=== PATIENT | female | born 1945 | race Caucasian/White ===

== ENCOUNTER 2017-10-07 18:18 | Emergency (ER) | payer OTHER ==
[2017-10-07 18:24] VITALS: TEMP 37.2
[2017-10-07 19:13] LABS: BASO % 0.6 %; BASO ABS # 0.03 K/uL (0-0.2); EOS % 2.3 %; EOS ABS # 0.12 K/uL (0-0.5); HEMATOCRIT 33.8 % (37-47); HEMOGLOBIN 10.6 g/dL (12.0-16.0); IG# 0.01 K/uL (0.00-0.02); LYMPH % 20.9 %; LYMPH ABS # 1.11 K/uL (1.2-3.4); MEAN CELL VOLUME 92.1 fL (80-100); MEAN CORPUSCULAR HEMOGLOBIN 28.9 pg (25-34); MEAN CORPUSCULAR HGB CONC 31.4 g/dl (32-36); MEAN PLATELET VOLUME 9.2 fL (7.4-10.4); MONO % 8.7 %; MONO ABS # 0.46 K/uL (0.11-0.59); NEUT % 67.3 %; NEUT ABS # 3.57 K/uL (1.4-6.5); PLATELET COUNT 271 K/uL (130-400); RED CELL DISTRIBUTION WIDTH CV 13.6 % (11.5-14.5); RED CELL DISTRIBUTION WIDTH SD 45.9 fL (36.4-46.3)
[2017-10-07 19:30] LABS: BLOOD UREA NITROGEN 27 mg/dl (7-18); CALCIUM 8.9 mg/dl (8.5-10.1); CARBON DIOXIDE 30 mmol/L (21-32); CREATININE 0.96 mg/dl (0.60-1.20); GLUCOSE 83 mg/dl (70-99); POTASSIUM 3.5 mmol/L (3.5-5.1); SODIUM 142 mmol/L (136-145)
--- NOTE | 2017-10-07 19:32 | DIAGNOSTIC IMAGING REPORT ---
PELVIS 1 OR 2 VIEW ROUTINE CLINICAL HISTORY: Pelvic pain COMPARISON STUDY: None FINDINGS: The bones are osteopenic. There are postsurgical and advanced degenerative changes within the lower lumbar spine. There is a right ischio pubic ring fracture. No femoral fractures are visualized on conventional radiographic imaging. IMPRESSION: Right ischio pubic ring fracture. Electronically signed by: Francisco Bush M.D. 10/07/2017 7:31 PM Dictated Date/Time: 10/07/2017 7:30 PM
[2017-10-07] MEDS ORDERED: GABA-112 PO (20:03)
[2017-10-07] MEDS ORDERED: NMN10 PO (20:04)
[2017-10-07] MEDS ORDERED: LACTCAP3 PO (20:07)
[2017-10-07] MEDS ORDERED: AMLO5TAB3 PO (20:09)
[2017-10-07] MEDS ORDERED: B-CO1TAB29 PO (20:15)
[2017-10-07] MEDS ORDERED: CLR10 PO (20:16)
[2017-10-07] MEDS ORDERED: PANT40TA PO (20:17)
[2017-10-07] MEDS ORDERED: SERT-234 PO (20:18)
[2017-10-07] MEDS ORDERED: TRIATAB3 PO (20:19)
[2017-10-07] MEDS ORDERED: BUPR-83 PO (20:21)
[2017-10-07] MEDS ORDERED: ASPI81TA28 PO (20:22)
[2017-10-07] MEDS ORDERED: CALC-323 PO (20:23)
[2017-10-07] MEDS ORDERED: GLUC15009 PO (20:25)
[2017-10-07] MEDS ORDERED: METO50TA8 PO (20:26)
[2017-10-07] MEDS ORDERED: MULT-1027 PO (20:28)
[2017-10-07] MEDS ORDERED: RISP1TAB68 PO (20:29)
[2017-10-07] MEDS ORDERED: RANI300T2 PO (20:30)
[2017-10-07] MEDS ORDERED: ATV/1 PO (20:30)
[2017-10-07] MEDS ORDERED: RIVA1DIS TD (20:33)
[2017-10-07] MEDS ORDERED: FLUT0.15 NAE (20:34)
[2017-10-07] MEDS ORDERED: FERR1TAB23 PO (20:37)
[2017-10-07] MEDS ORDERED: ASCO500T16 PO (20:38)
[2017-10-07] MEDS ORDERED: SENN-61 PO (20:39)
[2017-10-07 21:36] VITALS: BP 133/71; PULSE 76; O2SAT 98
--- NOTE | 2017-10-07 23:42 | EMERGENCY ROOM VISIT NOTE ---
History Report prepared by Daya: Joe Prater Under the Supervision of: Dr. Zaheer Morales M.D. First contact with patient: 18:28 Chief Complaint: PELVIC PAIN Stated Complaint: FRACTURED PELVIS History of Present Illness The patient is a 72 year old female who presents to the Emergency Room with complaints of constant, right, groin pain beginning 8 days ago. The patient's son states she fell mowing grass a month ago. He reports she was fine for two weeks and then started having pain. The son notes she was evaluated by her PCP and had a back and pelvis x-ray that was negative for an acute fracture. He states she also had a normal pelvic exam. The son reports she had laser treatment last Monday for pain, and she could barely walk into the office for treatment. He notes she was taken to [facility] and told she had a fractured pelvis. The son states her fracture was visible per a pelvic x-ray. He notes she was discharged with hydrocodone for pain. He reports he forgot the report and does not remember where the fracture was located. The patient notes she has severe discomfort in her right groin area. The son states he tried to have her admitted to [facility], but she could not be admitted without being evaluated by an orthopedist. He reports she cannot walk by herself, and he is taking care of her. The son notes he is leaving tomorrow, and it is not safe for her to be at home. The patient denies being incontinent of urine, fevers, and vomiting. HPI limited secondary to the patient's dementia. Source of History: patient, family History Limited By: dementia Onset: 8 days ago Position: other (right groin) Symptom Intensity: severe Timing: constant Modifying Factors (Worsening): movement (including walking) Associated Symptoms: No fevers, No vomiting Note: Denies: being incontinent of urine Review of Systems ROS limited secondary to the patient's dementia. Past Medical & Surgical Medical Problems: (1) Dementia (2) Depression (3) HTN (hypertension) Surgical Problems: (1) Fusion of lumbar spine Family History Patient reports no known family medical history. Social History Smoking Status: Former Smoker Marital Status: Housing Status: lives with significant other Current/Historical Medications Scheduled Amlodipine (Norvasc), 5 MG PO QAM Ascorbic Acid (Ascorbic Acid), 500 MG PO QAM Aspirin (Aspirin Ec), 81 MG PO QPM B-Complex Vitamins (Vitamin B-Complex), 1 TAB PO QAM Bupropion (Wellbutrin), 100 MG PO AMPM Calcium Citrate-Vitamin D (Citracal Maximum), 600 MG PO QPM Ferrous Sulfate (Iron), 325 MG PO Q2D Fluticasone Propionate (Nasal) (Flonase Allergy Relief), 1 SPRAY BAILEE HS Gabapentin (Neurontin), 100 MG PO AMPM Glucosamine Hydrochloride (Glucosamine), 3,000 MG PO QPM Lactobacillus (Acidophilus), 1 CAP PO DAILY Loratadine (Claritin), 10 MG PO QAM Lorazepam (Ativan), 1 MG PO HS Memantine (Namenda), 10 MG PO AMPM Metoprolol Succ (Toprol Xl) (Toprol-Xl), 50 MG PO QPM Multiple Vitamin (Multi Vitamin), 1 TAB PO QPM Pantoprazole (Protonix), 40 MG PO QAM Ranitidine Hcl (Zantac), 300 MG PO HS Risperidone (Risperdal), 1 MG PO HS Rivastigmine (Exelon), 1 PATCH TD HS Senna (Senokot), 17.2 MG PO HS Sertraline (Zoloft), 200 MG PO QAM Triamterene/Hctz (Triamterene/Hctz 37.5-25MG), 1 TAB PO QAM Allergies Coded Allergies: Acetaminophen (Verified Allergy, Unknown, UNKNOWN, 10/07/17) Celecoxib (Verified Allergy, Unknown, UNKNOWN, 10/07/17) Desloratadine (Verified Allergy, Unknown, UNKNOWN, 10/07/17) Dexbrompheniramine (Verified Allergy, Unknown, UNKNOWN, 10/07/17) Erythromycin (Verified Allergy, Unknown, UNKNOWN, 10/07/17) Fexofenadine (Verified Allergy, Unknown, UNKNOWN, 10/07/17) Mesalamine (Verified Allergy, Unknown, UNKNOWN, 10/07/17) Metoclopramide (Verified Allergy, Unknown, UNKNOWN, 10/07/17) Pseudoephedrine (Verified Allergy, Unknown, UNKNOWN, 10/07/17) Valdecoxib (Verified Allergy, Unknown, UNKNOWN, 10/07/17) Venlafaxine (Verified Allergy, Unknown, UNKNOWN, 10/07/17) CI Pigment Blue 63 (Verified Adverse Reaction, Intermediate, DIARRHEA, ) Dexlansoprazole (Verified Adverse Reaction, Intermediate, DIARRHEA, ) Uncoded Allergies: ADHESIVE (Allergy, Mild, ERRYTHEMA, 10/07/17) NOVAFED (Allergy, Unknown, UNKNOWN, 10/07/17) PENICILLIN (Allergy, Unknown, UNKNOWN, 10/07/17) Physical Exam Vital Signs Date Time Temp Pulse Resp B/P (MAP) Pulse Ox O2 Delivery O2 Flow Rate FiO2 10/07/17 21:36 76 16 133/71 98 10/07/17 20:09 67 16 133/70 96 Room Air 10/07/17 18:24 37.2 69 17 113/72 96 Room Air Physical Exam Constitutional: Vital signs reviewed. Eyes: Pupils are equal round reactive to light. Conjunctiva are noninjected. ENT: Pharynx is clear without erythema or exudate. Mucous membranes are moist. Neck supple without meningeal signs. Respiratory: Clear to auscultation bilaterally. Breath sounds are equal bilaterally. Cardiovascular: Regular rate and rhythm. No rubs or gallops. GI: Soft, nondistended and nontender. Bowel sounds are present. Musculoskeletal: No peripheral edema. No tenderness to the right hip. Pain with flexion of the right hip. No midline tenderness to the lumbar spine. Integumentary: No cyanosis. Neurological: The patient is awake and alert. No focal deficits. Motor and sensation intact in the distal lower extremities. Psychiatric: Normal affect. Medical Decision & Procedures ER Provider Diagnostic Interpretation: X-ray results as stated below per interpretation by me and the radiologist: PELVIS 1 OR 2 VIEW ROUTINE CLINICAL HISTORY: Pelvic pain COMPARISON STUDY: None FINDINGS: The bones are osteopenic. There are postsurgical and advanced degenerative changes within the lower lumbar spine. There is a right ischio pubic ring fracture. No femoral fractures are visualized on conventional radiographic imaging. IMPRESSION: Right ischio pubic ring fracture. Electronically signed by: Francisco Bush M.D. 10/07/2017 7:31 PM Dictated Date/Time: 10/07/2017 7:30 PM Laboratory Results 10/07/17 18:50 Red Blood Count 3.67, Mean Corpuscular Volume 92.1, Mean Corpuscular Hemoglobin 28.9, Mean Corpuscular Hemoglobin Concent 31.4, Mean Platelet Volume 9.2, Neutrophils (%) (Auto) 67.3, Lymphocytes (%) (Auto) 20.9, Monocytes (%) (Auto) 8.7, Eosinophils (%) (Auto) 2.3, Basophils (%) (Auto) 0.6, Neutrophils # (Auto) 3.57, Lymphocytes # (Auto) 1.11, Monocytes # (Auto) 0.46, Eosinophils # (Auto) 0.12, Basophils # (Auto) 0.03 10/07/17 18:50 Test 10/07/17 18:50 White Blood Count 5.30 K/uL (4.8-10.8) Red Blood Count 3.67 M/uL (4.2-5.4) Hemoglobin 10.6 g/dL (12.0-16.0) Hematocrit 33.8 % (37-47) Mean Corpuscular Volume 92.1 fL (80-100) Mean Corpuscular Hemoglobin 28.9 pg (25-34) Mean Corpuscular Hemoglobin Concent 31.4 g/dl (32-36) Platelet Count 271 K/uL (130-400) Mean Platelet Volume 9.2 fL (7.4-10.4) Neutrophils (%) (Auto) 67.3 % Lymphocytes (%) (Auto) 20.9 % Monocytes (%) (Auto) 8.7 % Eosinophils (%) (Auto) 2.3 % Basophils (%) (Auto) 0.6 % Neutrophils # (Auto) 3.57 K/uL (1.4-6.5) Lymphocytes # (Auto) 1.11 K/uL (1.2-3.4) Monocytes # (Auto) 0.46 K/uL (0.11-0.59) Eosinophils # (Auto) 0.12 K/uL (0-0.5) Basophils # (Auto) 0.03 K/uL (0-0.2) RDW Standard Deviation 45.9 fL (36.4-46.3) RDW Coefficient of Variation 13.6 % (11.5-14.5) Immature Granulocyte % (Auto) 0.2 % Immature Granulocyte # (Auto) 0.01 K/uL (0.00-0.02) Anion Gap 6.0 mmol/L (3-11) Estimated GFR () 69.0 Estimated GFR (Non- 59.5 BUN/Creatinine Ratio 28.6 (10-20) Calcium Level 8.9 mg/dl (8.5-10.1) Laboratory results as reviewed by me. ED Course 1829: The patient was evaluated in room A12B. A complete history and physical exam was performed. 1937: I discussed the patient's case with Dr. Turner [facility]. He states the patient should bare weight as tolerated with a walker, and he will evaluate her in the week. 1942: I reevaluated the patient and discussed her test results with her family. The son states her anemia is not a new issue. Medical Decision This is a 72-year-old female presents with a pelvic fracture for placement. I did perform a limited focused review of portions of the patient's old chart on the electronic medical record. The patient has had no prior visits to this hospital. I did evaluate the patient as noted above. The patient fractured her pelvis several weeks ago and is presenting here because the family was told to come to the ED for placement and [facility]. The son is also leaving for [place] tomorrow and there is no one else to help take care of her at home. IV access was established. I did order and review the patient's blood work as noted in the electronic medical record. I did order an x-ray of the pelvis. I did review the images myself as well as the radiology report as described above. I did discuss the case with the orthopedic physician air cargo ground operations supervisor. He did look at the x-rays himself. He recommended weightbearing as tolerated with a walker and follow-up in the office. The patient was referred to [facility]. She was accepted and transferred there in good condition. I did discuss the test results with the patient and her family. She does have a prior history of anemia according to her son. Medication Reconcilliation Current Medication List: was personally reviewed by me Blood Pressure Screening Patient's blood pressure: Normal blood pressure Blood pressure disposition: Did not require urgent referral Consults Time Called: 1933 Consulting Physician: Dr. Turner, [facility] Returned Call: 1937 I discussed the patient's case with Dr. Turner [facility]. He states the patient should bare weight as tolerated with a walker, and he will evaluate her in the week. Impression Primary Impression: Pelvis fracture, right Additional Impression: Anemia Scribe Attestation The scribe's documentation has been prepared under my direct and personally reviewed by me in its entirety. I confirm that the note above accurately reflects all work, treatment, procedures, and medical decision making performed by me. Departure Information Dispostion Transfer Acute [facility] ([facility]) Patient Instructions My [facility] Problem Qualifiers Primary Impression: Pelvis fracture, right Encounter type: initial encounter Pelvic bone location: pubis Sublocation of pubis: other portion of pubis Fracture type: closed Qualified Codes: S32.591A - Other specified fracture of right pubis, initial encounter for closed fracture Additional Impression: Anemia Anemia type: unspecified type Qualified Codes: D64.9 - Anemia, unspecified
== END 2017-10-07 21:36 ==
LOC: C.EDB 18:19 → C.EDA 21:36
DX: S32.591A Other specified fracture of right pubis, initial encounter for closed fracture (principal); W19.XXXA Unspecified fall, initial encounter; D64.9 Anemia, unspecified; I10 Essential (primary) hypertension; F03.90 Unspecified dementia, unspecified severity, without behavioral disturbance, psychotic disturbance, mood disturbance, and anxiety; F32.9 Major depressive disorder, single episode, unspecified; Z79.82 Long term (current) use of aspirin; Z79.899 Other long term (current) drug therapy; Z98.890 Other specified postprocedural states; Z87.891 Personal history of nicotine dependence; Z88.6 Allergy status to analgesic agent; Z88.8 Allergy status to other drugs, medicaments and biological substances; Z91.048 Other nonmedicinal substance allergy status; Z88.1 Allergy status to other antibiotic agents